=== PATIENT | female | born 1980 | race Caucasian/White ===

== ENCOUNTER 2021-09-24 22:52 | Emergency (ER) | payer SELFPAY ==
[~2021-09-24] VITALS: Ht 160 cm; Wt 99.8 kg
--- NOTE | 2021-09-24 23:06 | NUR ---
BIB SELF C/O L KNEE PAIN X1 YR THAT HAS WORSTENED X2DAYS. DENIES ANY TRAUMA. STATES SHE EXPERIENCES 10/10 PAIN UPON WEIGHT BEARING AND EXTENSION OF THE EXTREMITY. NO WOUNDS, EDEMA, OR CONTUSIONS NOTED TO L KNEE. PMS EQUAL BILATERALLY. PT CHANGED INTO A GOWN AND PLACED ON MONITOR. VITALS STABLE AND MD WAS AT BEDSIDE FOR EVAL.
[2021-09-24 23:07] VITALS: BP 137/78
--- NOTE | 2021-09-24 23:13 | NUR ---
XRAY AT BEDSIDE
[2021-09-24] MEDS ORDERED: NAPR-1164 PO (23:39)
--- NOTE | 2021-09-24 23:51 | NUR ---
Patient discharged to home in stable condition. Rx and Written and verbal after care instructions given. Patient verbalizes understanding of instruction.
== END 2021-09-24 23:52 | disposition home or self-care (01) ==
LOC: ER 22:52
DX: M17.12 Unilateral primary osteoarthritis, left knee (principal); M25.562 Pain in left knee
CPT/HCPCS: 73564-TC